=== PATIENT | female | born 1960 | race Caucasian/White ===

== ENCOUNTER → 2016-09-27 | Outpatient (CLI) | payer BC ==
--- NOTE | 2016-09-28 08:29 | MAMMOGRAPHY REPORT ---
BILATERAL DIGITAL SCREENING MAMMOGRAM TOMOSYNTHESIS WITH CAD: 09/27/2016 CLINICAL HISTORY: Routine screening examination. TECHNIQUE: Breast tomosynthesis in addition to standard 2D mammography was performed. Current study was also evaluated with a Computer Aided Detection (CAD) system. COMPARISON: Comparison is made to exams dated: 08/24/2015 mammogram, 08/22/2014 mammogram, 05/17/2013 mammogram, 05/14/2012 mammogram, 05/12/2011 mammogram, and 05/03/2010 mammogram - [facility]. BREAST COMPOSITION: There are scattered areas of fibroglandular density in both breasts. FINDINGS: The parenchymal pattern is unchanged. No developing mass, architectural distortion or clu ster of suspicious microcalcifications is seen in either breast. IMPRESSION: ACR BI-RADS CATEGORY 2: BENIGN There is no mammographic evidence of malignancy. A 1 year screening mammogram is recommended. The p atient will receive written notification of the results. Approximately 10% of breast cancers are not detected with mammography. A negative mammographic repor t should not delay biopsy if a clinically suggestive mass is present. Yuli Arvizu M.D. ay/:09/27/2016 16:50:16 Cook 3 Pastry: Carole OLEARY(Sahara)(M), [facility] letter sent: Normal 1/2 BI-RADS Code: ACR BI-RADS Category 2: Benign
== END | disposition home or self-care (01) ==
LOC: C.MAMM 15:48
PROVIDERS: ATTEND Obstetrics & Gynecology
DX: Z12.31 Encounter for screening mammogram for malignant neoplasm of breast (principal)

== ENCOUNTER → 2017-05-02 | Outpatient (CLI) | payer BC | END | disposition home or self-care (01) | LOC: C.PAPS 12:16 | PROVIDERS: ATTEND Obstetrics & Gynecology | DX: Z01.419 Encounter for gynecological examination (general) (routine) without abnormal findings (principal) ==

== ENCOUNTER → 2018-01-02 | Outpatient (CLI) | payer BC ==
--- NOTE | 2018-01-03 13:37 | MAMMOGRAPHY REPORT ---
BILATERAL DIGITAL SCREENING MAMMOGRAM TOMOSYNTHESIS WITH CAD: 01/02/2018 CLINICAL HISTORY: Routine screening. Patient has no complaints. TECHNIQUE: The study was acquired using full field digital technology and interpreted from soft copy. Breast tomosynthesis in addition to standard 2D mammography was performed. Current study was also ev aluated with a Computer Aided Detection (CAD) system. COMPARISON: Comparison is made to exams dated: 09/27/2016 mammogram, 08/24/2015 mammogram, 08/22/2014 ma mmogram, 05/17/2013 mammogram, 05/14/2012 mammogram, and 05/12/2011 mammogram - [facility]. BREAST COMPOSITION: There are scattered areas of fibroglandular density in both breasts. FINDINGS: The parenchymal pattern is unchanged. No developing mass, architectural distortion or cluster of susp icious microcalcifications is seen in either breast. IMPRESSION: ACR BI-RADS CATEGORY 2: BENIGN There is no mammographic evidence of malignancy. A 1 year screening mammogram is recommended.( 019) The patient will receive written notification of the results. Some breast cancers are not detected with mammography. A negative mammographic report should not ilya y biopsy if a clinically suggestive mass is present. Yuli Arvizu M.D. ay/:01/02/2018 15:39:21 Casing Grader: RT Hayden(Sahara)(M), [facility] letter sent: Normal 1/2 BI-RADS Code: ACR BI-RADS Category 2: Benign
== END | disposition home or self-care (01) ==
LOC: C.MAMM 15:16
PROVIDERS: ATTEND Obstetrics & Gynecology
DX: Z12.31 Encounter for screening mammogram for malignant neoplasm of breast (principal)

== ENCOUNTER 2023-07-06 06:59 | Observation (INO) ==
--- NOTE | 2023-07-06 08:28 | History & Physical Bridge Note ---
Date of Service July 06, 2023 History & Physical Bridge Note I have examined the patient, reviewed the History & Physical and in the interval since the performance of the History & Physical I have noted the following changes of clinical significance: no changes noted
--- NOTE | 2023-07-06 08:28 | Pre Anesthesia Assessment ---
Date of Service July 06, 2023 Pre Sedation Assessment Vital Signs Temp Pulse Resp BP Pulse Ox O2 Del Method 07/06/23 07:12 36.8 C 63 16 157/81 H 96 Room Air Cardiovascular RRR, no murmur, no edema + S1 normal and + S2 normal no JVD and no carotid bruit no edema Respiratory + respiratory effort normal; no respiratory distress, no labored breathing and no retractions no crackles, no rales, no rhonchi and no wheezes Pre-Sedation Airway Assessment Smoking Status: Former smoker Hx Sleep Apnea: No Short, Thick Neck: No Thyromental Distance: > or= 3.5 Finger Breadths Oral Cavity: + WNL Mallampati Class: III ASA: ASA3 NPO Status Date of Last Intake of Fluids: 07/06/23 Time of Last Intake of Fluids: 06:00 Last Oral Intake of Fluids Comment: sip with meds Date of Last Intake of Solid Food: 07/05/23 Procedure Planning Contraindications for Sedation: none Current Medications Reviewed: Yes Notes The planned sedation has been discussed with the patient. Informed Consent was obtained. I have identified the patient, determined the appropriateness of sedation and have assessed the patient immediately prior to the procedure. All medicine(s) and interventions are by my order.
--- NOTE | 2023-07-06 09:28 | Post Anesthesia Assessment ---
Date of Service July 06, 2023 Post Sedation Assessment Vital Signs Temp Pulse Resp BP Pulse Ox O2 Del Method 07/06/23 14:51 36.8 C 64 17 114/74 96 Room Air 07/06/23 14:30 36.8 C 60 18 128/74 97 Room Air 07/06/23 14:15 36.8 C 59 L 18 139/74 97 Room Air 07/06/23 14:00 36.8 C 58 L 18 146/73 H 97 Room Air 07/06/23 13:45 36.8 C 58 L 18 137/83 97 Room Air 07/06/23 13:30 36.8 C 58 L 18 133/77 97 Room Air 07/06/23 13:12 36.8 C 55 L 18 133/75 97 Room Air 07/06/23 13:00 36.8 C 57 L 18 108/80 98 Room Air 07/06/23 12:45 36.8 C 56 L 18 121/62 97 Room Air 07/06/23 12:30 36.8 C 59 L 18 108/64 98 Room Air 07/06/23 12:13 36.8 C 61 18 122/70 98 Room Air 07/06/23 12:00 36.8 C 62 18 126/68 98 Room Air 07/06/23 11:45 67 18 145/54 H 96 Room Air 07/06/23 11:30 36.7 C 67 18 129/69 96 Room Air 07/06/23 11:15 36.7 C 67 18 133/69 96 Room Air 07/06/23 11:00 36.7 C 74 18 121/76 96 Room Air 07/06/23 10:45 36.7 C 71 18 123/74 96 Room Air 07/06/23 10:35 36.7 C 48 L 18 93/51 L 96 Room Air 07/06/23 07:12 36.8 C 63 16 157/81 H 96 Room Air Recovery Score Activity: Moves 4 extremities Respiration: Deep Breath/Cough Circulation: +/-20% PreAnes Value Consciousness: Arouseable (by name) Oxygen Saturation: > 92% On Room Air Discharge Sedation Level of Care: Phase I Post Sedation Plan On clinical assessment, the patient appears to have tolerated the sedation without complications. Patient is recovering as anticipated. Patient will continue to be monitored by nursing and may be discharged when sedation discharge criteria are met per below protocol. Upon Completions of procedure up to 15 minutes continue every 5 minute vital signs and the P.A.R. score; then discharge to a Phase I or Fast Track to Phase II per the following guidelines: * Discharge Patient to appropriate Phase II area if PAR is 8 or greater or return to pre- procedure baseline. The post - procedure orders will be as directed. * If PAR score is less than 8 or not return to pre-procedure baseline then patient will follow Phase I monitoring till PAR is reached for Phase II. The Phase I may be done in procedure room or may call to secure a Phase I area. * If naloxone or flumazenil are used for reversal, hold in Phase I for continued monitoring from when last reversal dose was given for a minimum of 60 minutes or longer pending the nurse and/or physician discretion of patient condition before discharge to Phase II. Please call the Sedation Physician to re-evaluate and complete post-note for discharge to Phase II area. Do NOT discharge from procedure sedation or Phase 1 until post- sedation evaluation note is complete by procedure /sedation MD Sedation Discharge Instructions to be given to the patient at discharge to home.
--- NOTE | 2023-07-06 09:33 | Cardiac Catheterization ---
Cardiac Cath Procedure Full Procedure Date July 06, 2023 Pre-Procedure Diagnosis Pre-Procedure Diagnosis: Positive Stress Test AUC Score AUC Score: 7 Post-Procedure Diagnosis Post-Procedure Diagnosis: Severe CAD and Elevated Intracardiac Pressures Procedure(s) Performed Procedure(s) Performed: Coronary Angiography and Left Heart Cath Teacher Learning Disabled Jamie oRme DO Imcu Specialist(s) Deibler SUPERVISOR MOLD SHOP Estimated Blood Loss Estimated Blood Loss: 6cc Medication(s) Medication(s): Fentanyl, Heparin, Lidocaine 1%, Nicardipine, Nitroglycerin and Versed Summary of Findings 50-60% ostial LAD (IFR .94 per 911 emergency dispatcher) 60% mid LAD after D2, small vessel 80% mid D2, large vessel Hemodynamics Rest Ao:: 168/78/119 Final Ao: 189/78/120 LV: 192/12/20 Recommendations Recommendations: Management Recommendatons (Interventional cardiology consulted for further evaluation of LAD and diagonal) Radiation Exposure (mGy) 575 Contrast (mls) 50 Fluids (cc crystalloids) Fluids (cc crystalloids): 71 Nss Drains Drains: N/A Anesthesia Moderate sedation. Procedural Complication(s) None I attest to the content of the Intraoperative Record and any orders documented therein. Any exceptions are noted below. ACC Data: Scroll Assembler Cardiac Status Clinical evaluation leading to the procedure Abnormal resting ECG suggesting anteroseptal infarct. Patient referred for stress testing demonstrating mid and apical septal ischemia. CAD Presenation: Positive Stress Test and Stable angina (Dyspnea with exertion) Anginal Classification: CCS II Heart Failure: No Coronary Anatomy Dominant: Right Left Main (% Stenosis): Mid (20%) LAD (% Stenosis): Ostial (50%) and Mid (60%) D1 (% Stenosis): Normal D2 (% Stenosis): Proximal (30%) and Mid (80%) Circumflex (% Stenosis): Proximal (Luminal irregularities, 10%) OM1 (% Stenosis): Mid (40% stenosis involving inferior subbranch of bifurcation) RCA (% Stenosis): Proximal (30%) and Mid (30%) R PDA (% Stenosis): Normal R PL1 (% Stenosis): Normal (Small vessel) R PL2 (% Stenosis): Normal (Small vessel) Diagnostic Physicians Name: Jamie Rome DO Closure Device Recommendations: Management Recommendatons (Interventional cardiology consulted for further evaluation of LAD and diagonal) Intraprocedure Events Significant Disection: No Perforation: No
--- OUTSIDE RECORDS SUMMARY | 2023-07-06 10:04 | External Medical Summary | Summary of Care ---
Author Name Unknown Organization [facility] Address [address] [place] [address] Phone [phone] Care Team Providers Care Electrician Aircraft Name Role Phone Anisha Suazo MD Primary Care Provider [phone] Reason for Visit * Reason Comments Outpatient Testing Encounter Details Date Type Department Care Team (Late st Contact Info) Description 07/05/2023 3:50 PM EST Laboratory Laboratory, [facility] [address] [place] [address] [facility] [address] [place] [address] Abnormal stress test; Abnormal stress echocardiography; Pre-op testing Allergies No known active allergiesdocumented as of this encounter (statuses as of 07/05/2023) Medications Medication Sig Dispensed Refills Start Date End Date Status valACYclovir (VALTREX) 500 MG Tablet Take 1 Tablet by mouth in the morning. 0 03/20/2017 Active Cholecalciferol (VITAMIN D) 1000 units Tablet Take 1 Tablet by mouth in the morning. 0 05/16/2018 Active Metamucil Smooth Texture 58.6 % Oral Powder (Psyllium)Indication s:Diverticulosis of large intestine without hemorrhage One tbsp in 8 ounces of water 3/d 0 03/17/2022 Active Fluocinonide 0.05 % External SolutionIndications: Seborrheic dermatitis of scalp Apply to scalp nightly x 1 week and then as needed for itching or flaking 60 mL 2 03/22/2022 Active Ketoconazole 2 % External Shampoo (Nizoral)Indications :Seborrheic dermatitis of scalp Apply to scalp 2-3 times per week for maintenance; leave on 3-5 min before rinsing 120 mL 3 04/17/2023 Active Aspirin 81 MG Oral Tablet Delayed Release Take 1 Tablet by mouth in the morning. 100 Tablet 3 07/05/2023 Active Metoprolol Tartrate 25 MG Oral Tablet (Lopressor) Take 0.5 Tablets by mouth in the morning and 0.5 Tablets before bedtime. 30 Tablet 2 07/05/2023 Active documented as of this encounter (statuses as of 07/05/2023) Active Problems Problem Noted Date Diagnosed Date Seborrheic dermatitis of scalp 03/17/2022 Dyslipidemia, goal LDL below 160 05/07/2009 Overview: Per Lipid Taxonomy. Benign neoplasm of colon 10/21/2008 Overview: 2 polyps removed, bx from previous TV polyp nl, recommend f/u in 1 year Tubulovillous adenoma of colon 04/16/2008 Overview: 2007--large pedunculated polyp--tubulovillous adenoma with focal hig grade dysplasia--repeat 6months Female infertility of other specified origin 02/2005 Polycystic ovaries 08/05/2004 documented as of this encounter (statuses as of 07/05/2023) Resolved Problems Problem Noted Date Diagnosed Date Resolved Date ADVANCE DIRECTIVE INFORMATION 11/25/2004 03/17/2022 Overview: informed to bring in to scan documented as of this encounter (statuses as of 07/05/2023) Immunizations Name Administration Dates Next Due COVID-19 mRNA, LNP-s, No Pre serve, 2-Dose Series (Moderna) 09/29/2020,09/01/2020 COVID-19, MRNA-LNP, 23-24, P F, 50 MCG/0.5 mL, 12 YRS AND ABOVE, IM (MODERNA-Spikevax) 02/28/2023 COVID-19, mRNA, LNP-s, PF, B ooster, 100mcg/0.5mg (Moderna) 11/01/2021,04/04/2021 Covid-19, Mrna, Lnp-s, Pf, B ivalent, 50 Mcg, IM, 12 yrs and above (Moderna) 02/20/2022 Seasonal Influenza, PF, 6 M & above, IM , (FluLaval or Fluzone) 02/11/2020 TD, Preservative Free 05/16/2018 TDAP (age 11 and older)(Adacel) 03/14/2008 documented as of this encounter Social History Tobacco Use Types Packs/Day Years Used Date Smoking Tobacco: Former Cigarettes 1 26 Q uit: 05/29/2001 Smokeless Tobacco: Never Comments:quit 7 years ago Alcohol Use Standard Drinks/Week Comments Yes 0 (1 standard drink = 0.6 oz pur e alcohol) occasionaly PHQ-2 Answer Date Recorded PHQ Adult Total Score 0 04/17/2023 Sex and Gender Information Value Date Recorded Sex Assigned at Female 04/17/2023 8:24 AM EST Gender Identity Female 04/17/2023 8:24 AM EST Sexual Orientation Straight 04/17/2023 8: 24 AM EST Job Start Date Occupation Industry Not on file Not on file Not on file documented as of this encounter Plan of Treatment Upcoming Encounters Date Type Department Care Team (Latest Contact Info) Description 07/11/2023 9:00 AM EST Office Visit General Internal Medicine [facility] [place] [address] [facility] [address] [place] [address] Anisha Suazo MD [address] [facility] [place] [address] 08/21/2023 10:45 AM EDT Hospital Encounter ENDO [facility], Endoscopy Room [facility] [address] [place] [phone] Gabby Clifford DO 08/21/2023 10:45 AM EDT - 08/21/2023 11:15 AM EDT Surgery ENDO [facility], Endoscopy Room [facility] [address] [place] [address] Gabby Clifford, DO COLONOSCOPY FLEXIBLE PROXIMAL DIAGNOSTIC Pending Results Name Type Priority Associated Diagnoses Date /Time PT INR Lab Routine Abnormal stress test 07/05/2023 3:45 PM EST APTT Lab Routine Abnormal stress test 07/05/2023 3:45 PM EST CBC Lab Routine Abnormal stress test 07/05/2023 3:45 PM EST BASIC METABOLIC PANEL Lab Routine Abnormal stress echocardiography Pre-op testing 07/05/2023 4:04 PM EST Scheduled Procedures Name Priority Associated Diagnoses Date/Ti me COLONOSCOPY FLEXIBLE PROXIMAL DIAGNOSTIC Recall History of colon polyps Screen for colon cancer History of colonoscopy with polypectomy 08/21/2023 10:45 AM EDT Health Maintenance Due Date Last Done Comments HIV Screening 1975 Hepatitis C Screening 02/06/1976 Zoster Vaccines (1 of 2) 02/06/2008 COLONOSCOPY-EVERY 5 YRS AGES 18-100 03/27/2022 03/27/2017, 03/27/2017, 01/14/2013, Additional history exists Influenza Vaccine (FLU shot) (#1) 2023 02/11/2020 DXA Scan 2023 Pneumococcal Vaccine: 65+ Years (1 - PCV) 2023 Depression Screening 04/17/2024 04/17/2023 Mammogram 04/19/2024 04/19/2023, 12/29, 01/17/2022, Additional history exists Lipid Panel 03/09/2028 03/09/2023, 02/26, 03/21/2017, Additional history exists DTaP,Tdap,and Td Vaccines (3 - Td or Tdap) 05/16/2028 05/16/2018, 03/14/2008 Cervical Cancer Screening Discontinued Pap Smear Discontinued 05/11/2018, 03/29, 04/09/2015 (Done elsewhere), Additional history exists COVID-19 Vaccine Completed 02/28/2023, , 11/01/2021, Additional history exists GARDASIL-HPV IMMUNIZATION SERIES Aged Out No longer eligible based on patient's age to complete this topic HPV/Co-Test Discontinued Hepatitis B Aged Out No longer eligi ble based on patient's age to complete this topic MENINGOCOCCAL (MENACTRA/MENVEO) Aged Out No longer eligible based on patient's age to complete this topic documented as of this encounter Medical Devices Not on filedocumented as of this encounter Visit Diagnoses Diagnosis Abnormal stress test Other nonspecific abnormal cardiovascular system function study Abnormal stress echocardiography Pre-op testing Preoperative examination, unspecified History of colon polyps Personal history of colonic polyps Screen for colon cancer Special screening for malignant neoplasms, colon History of colonoscopy with polypectomy Other postprocedural status documented in this encounter Care Teams Electrician Aircraft Relationship Specialty Start Date End Date Anisha Suazo MD [address] [facility] [place] [address] PCP - General Internal Medicine 04/26/21 documented as of this encounter
--- OUTSIDE RECORDS SUMMARY | 2023-07-06 10:05 | External Medical Summary ---
Author Name Unknown Address Unknown Organization [facility] [address] [place] [address] Laboratory Report Ordering Provider Test Date Status JUAQUIN ALMAGUER 07/05/2023 15:45:17 Final Observation Date Value Abnormality Reference (Units ) Status WBC, Total 07/05/2023 15:45:17 7.13 4.00-10.8 0 (K/uL) Final RBC 07/05/2023 15:45:17 4.37 3.85-5.15 (M/uL) Final Hemoglobin 07/05/2023 15:45:17 13.6 12.0-15.3 (g/dL) Final HCT 07/05/2023 15:45:17 39.9 36.0-45.2 (%) Final MCV 07/05/2023 15:45:17 91.3 81.5-97.5 (fL) Final MCH 07/05/2023 15:45:17 31.1 27.0-34.0 (pg) Final MCHC 07/05/2023 15:45:17 34.1 32.0-36.0 (g/dL) Final RDW 07/05/2023 15:45:17 12.8 11.5-15.5 (%) Final Platelets 07/05/2023 15:45:17 297 140-400 (K /uL) Final MPV 07/05/2023 15:45:17 9.7 6.6-11.1 ( fL) Final Performing Location [facility] [address] [place] [address]
--- OUTSIDE RECORDS SUMMARY | 2023-07-06 10:05 | External Medical Summary | Summary of Care ---
Author Name Unknown Organization [facility] Address [address] [place] [address] Phone [phone] Care Team Providers Care Bank Analyst Name Role Phone Anisha Suazo MD Primary Care Provider [phone] Reason for Visit * Reason Comments Outpatient Testing Encounter Details Date Type Department Care Team (Late st Contact Info) Description 07/05/2023 3:50 PM EST Laboratory Laboratory, [facility] [address] [place] [address] [facility] [address] [place] [address] Abnormal stress test Allergies No known active allergiesdocumented as of [...] Department Care Team (Latest Contact Info) Description 07/05/2023 4:00 PM EST Imaging Radiology [address] [facility] [place] [address] Arrived 07/11/2023 9:00 AM EST Office Visit General Internal Medicine [facility] [place] [address] [place] [address] Anisha Suazo MD [address] [facility] [place] [address] 08/21/2023 10:45 AM EDT Hospital Encounter ENDO [facility], Endoscopy Room [facility] [address] [facility] [place] [phone] Gabby Clifford DO 08/21/2023 10:45 AM EDT - 08/21/2023 11:15 AM EDT Surgery ENDO [facility], Endoscopy Room [facility] [address] [place] [phone] Gabby Clifford, DO COLONOSCOPY FLEXIBLE PROXIMAL DIAGNOSTIC Pending Results Name Type Priority Associated Diagnoses Date /Time PT INR Lab Routine Abnormal stress test 07/05/2023 3:45 PM EST APTT Lab Routine Abnormal stress test 07/05/2023 3:45 PM EST CBC Lab Routine Abnormal stress test 07/05/2023 3:45 PM EST Scheduled Procedures Name Priority Associated [...] Other nonspecific abnormal cardiovascular system function study History of colon polyps Personal history of colonic polyps Screen for colon cancer Special screening for malignant neoplasms, colon History of colonoscopy with polypectomy Other postprocedural status documented in this encounter Care Teams Bank Analyst Relationship Specialty Start Date End Date Anisha Suazo MD [address] [facility] [place] [address] PCP - General Internal Medicine 04/26/21 documented as of this encounter
--- OUTSIDE RECORDS SUMMARY | 2023-07-06 10:05 | External Medical Summary | Summary of Care ---
Author Name Unknown Organization [facility] Address [address] [place] [address] Phone [phone] Care Team Providers Care Nib Assembler Name Role Phone Anisha Suazo MD Primary Care Provider [phone] Reason for Visit * Reason Onset Date Comments Procedure 07/05/2023 Encounter Details Date Type Department Care Team (Late st Contact Info) Description 07/05/2023 Telephone Cardiology, [facility] [address] [facility] [place] [address] Robert Moseley, [address] [facility] [place] [address] Procedure Allergies No known active allergiesdocumented as of [...] on file documented as of this encounter Miscellaneous Notes * Addendum Note - Randall Jimenez RN - 07/05/2023 3:40 PM ESTAddended by: RANDALL JIMENEZ on: 07/05/2023 03:40 PM Modules accepted: Orders * Telephone Encounter - Randall Jimenez RN - 07/05/2023 3:33 PM EST Patient schedule d for cardiac cath at [facility] tomorrow 07/06/[address] Moseley. Patient to be there at 0700 am And procedure at 0800. Pre-op teaching done. Patient to report to main entrance. No caffeine for 24 hours. NPO after 1000 pm. Only meds she needs morning of is her Metoprolol and 4 baby ASA.She will need a tanker truck driver to take her home. Dr. Rome will be notified by Dr. Moseley. documented in this encounter Plan of Treatment Upcoming Encounters Date Type Department Care Team (Latest Contact Info) Description 07/05/2023 3:50 PM EST Laboratory Laboratory, [facility] [address] [facility] [place] [id number] [facility] [address] [place] [address] Arrived 07/11/2023 9:00 AM EST Office Visit General Internal Medicine [facility] [address] [place] [address] Anisha Suazo MD [address] [place] [address] 08/21/2023 10:45 AM EDT Hospital Encounter ENDO [facility], Endoscopy Room [facility] [address] [facility] [place] [phone] Gabby Clifford, 08/21/2023 10:45 AM EDT - 08/21/2023 11:15 AM EDT Surgery ENDO [facility], Endoscopy Room [facility] [address] [facility] [place] [phone] Gabby Clifford, COLONOSCOPY FLEXIBLE PROXIMAL DIAGNOSTIC Scheduled Procedures Name Priority Associated Diagnoses Date/Ti [...] this encounter Visit Diagnoses Diagnosis Abnormal stress test- Primary Other nonspecific abnormal cardiovascular system function study History of colon polyps Personal history of colonic polyps Screen for colon cancer Special screening for malignant neoplasms, colon History of colonoscopy with polypectomy Other postprocedural status documented in this encounter Care Teams Nib Assembler Relationship Specialty Start Date End Date Anisha Suazo MD [address] [place] [address] PCP - General Internal Medicine 04/26/21 documented as of this encounter
--- OUTSIDE RECORDS SUMMARY | 2023-07-06 10:05 | External Medical Summary | Summary of Care ---
Author Name Unknown Organization [facility] Address [address] [place] [address] Phone [phone] Care Team Providers Care Vending Supervisor Name Role Phone Anisha Suazo MD Primary Care Provider [phone] Reason for Visit * Reason Comments Follow Up Encounter Details Date Type Department Care Team (Late st Contact Info) Description 07/05/2023 2:30 PM EST Office Visit Cardiology, [facility] [address] [place] [address] Robert Moseley, [address] [place] [address] Abnormal stress echocardiography*; Pre-op testing Allergies No known active allergiesdocumented [...] on file documented as of this encounter Last Filed Vital Signs Vital Sign Reading Time Taken Comments Blood Pressure 156/90 07/05/2023 2:37 PM EST Pulse 76 07/05/2023 2:37 PM EST Temperature - - Respiratory Rate 16 07/05/2023 2:37 PM EST Oxygen Saturation - - Inhaled Oxygen Concentration - - Weight 62.1 kg (137 lb) 07/05/2023 2:37 PM EST Height - - Body Mass Index 24.46 04/17/2023 8:22 AM EST documented in this encounter Progress Notes * Robert Moseley, - 07/05/2023 3:06 PM EST Cardiology Outpatient Consultation Kolton Cornell is a 63 year old female referred by Anisha Suazo MD who is seen in consultation for an abnormal stress test. 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 Recently, she has been noted to have some hypertension. 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 The patient underwent an exercise stress echocardiogram today. The study was markedly abnormal with EKG changes as well as wall motion abnormalities in the anterior myocardium. The patientwas able to do 7 minutes of a Hardik protocol. She did not have any chest pain or other symptoms. Itshould be noted, the patient does have a routine exercise program including swimming laps 3 days a w [place] as well as having a walking program. During the above she has not had any chest pain or progressive shortness of breath. She denies dizziness or lightheadedness. No orthopnea. She has minimal risk factors for heart disease. No prior history of diabetes or hypercholesterolemia. Her father had heart disease starting in his 40s but he was a smoker. The patient has a remote history of smoking butstopped over 20 years ago. Past Medical History: Diagnosis Date Benign neoplasm of colon 04/16/08 large pedunculated polyp--tubulovillous adenoma with focal hig grade dysplasia--repeat 6months Benign neoplasm of colon 10/21/08 2 polyps removed, bx from previous TV polyp nl, recommend f/u in 1 year Benign neoplasm of colon 11/19/09 bx,repeat in 3 yrs,biopsies did not show any evidence of recurrent polyp Female infertility of other specified origin Polycystic ovaries Patient Active Problem List Diagnosis Code Female infertility of other specified origin N97.8 Polycystic ovaries E28.2 Tubulovillous adenoma of colon D12.6 Benign neoplasm of colon D12.6 Dyslipidemia, goal LDL below 160 E78.5 Seborrheic dermatitis of scalp L21.9 Past Surgical History: Procedure Laterality Date COLONOSCOPY W/ BIOPSY (RECTUM) 10/21/08 2 polyps removed, bx from previous TV polyp nl, recommend f/u in 1 year COLONOSCOPY W/ BIOPSY (RECTUM) 11/19/09 bx,repeat in 3 yrs,biopsies did not show any evidence of recurrent polyp COLONOSCOPY W/ LESION REMOVAL, SNARE 04/16/08 large pedunculated polyp--tubulovillous adenoma with focal hig grade dysplasia--repeat 6 months COLONOSCOPY, DIAGNOSTIC (RECTUM) 01/14/2013 COLONOSCOPY FLEXIBLE PROXIMAL DIAGNOSTIC performed by Pee Adame MD at ENDOSCOPY [facility] COLONOSCOPY, DIAGNOSTIC (RECTUM) 03/27/2017 normal, repeat 5 yrs/COLONOSCOPY FLEXIBLE PROXIMAL DIAGNOSTIC performed by Gabby Clifford DO at ENDOSCOPY [facility] OTHER laproscopy Family History Problem Relation Age of Onset Heart Disorder Mother --TCAVR age 87 Arthritis Mother Stroke Mother Gastro-intestinal disorder Father colon polyps age 60 Heart attack Father 47 Heart Disorder Sister ?valve replacement Heart Disorder Sister valve problem Heart Disorder Brother -SP AVR age 60 Breast Cancer Grandmother (Maternal) Breast Cancer Grandmother (Paternal) mastectomy Social History Tobacco Use Smoking status: Former Packs/day: 1.00 Years: 26.00 Additional pack years: 0.00 Total pack years: 26.00 Types: Cigarettes Quit date: 05/29/2001 Years since quittin.1 Smokeless tobacco: Never Tobacco comments: quit 7 years ago Substance Use Topics Alcohol use: Yes Comment: occasionaly Drug use: No Review of patient's allergies indicates: No Known Allergies Current Outpatient Medications Medication Sig Dispense Refill valACYclovir (VALTREX) 500 MG Tablet Take 1 Tablet by mouth in the morning. Cholecalciferol (VITAMIN D) 1000 units Tablet Take 1 Tablet by mouth in the morning. Metamucil Smooth Texture 58.6 % Oral Powder (Psyllium) One tbsp in 8 ounces of water 3/d Fluocinonide 0.05 % External Solution Apply to scalp nightly x 1 week and then as needed for itching or flaking 60 mL 2 Ketoconazole 2 % External Shampoo (Nizoral) Apply to scalp 2-3 times per week for maintenance; leave on 3-5 min before rinsing 120 mL 3 Aspirin 81 MG Oral Tablet Delayed Release Take 1 Tablet by mouth in the morning. 100 Tablet 3 Metoprolol Tartrate 25 MG Oral Tablet (Lopressor) Take 0.5 Tablets by mouth in the morning and 0.5 Tablets before bedtime. 30 Tablet 2 No current facility-administered medications for this visit. ROS: Review of Systems: See HPI for pertinent positives. All other review of systems is negative. PHYSICAL EXAMINATION BP 156/90 | Pulse 76 | Resp 16 | Wt 62.1 kg (137 lb) | LMP 12/28/2013 | BMI 24.46 kg/m | BSA 1.66m Body mass index is 24.46 kg/m. General: no acute distress and stated age Head: normocephalic, no masses, lesions, tenderness or abnormalities Eyes: conjunctiva are pink and non-injected, sclera clear Neck: supple, no adenopathy, no bruits, normal jugular venous pulse, no hepatojugular reflux Chest: normal shape and normal respiratory effort Lungs: clear to auscultation and percussion Cardiac Exam: - regular rate & rhythm, no murmurs gallops or rubs - normal S1, normal S2 Pulses: 2(+) throughout Abdomen: abdomen soft, non-tender, no abnormal masses and no hepatosplenomegaly Musculoskeletal: no gait disturbance, no joint inflammation, no deforming arthritis Extremities: no edema and no cyanosis Neuro: grossly normal exam Laboratory Data Review: Results for orders placed or performed in visit on 04/17/09 LIPID PANEL Result Value Ref Range HOURS FASTING 12 hours Triglycerides 128 55 - 240 mg/dL Cholesterol 224 (H) <200 mg/dL HDL Cholesterol 67 (H) 40 - 59 mg/dL Cholesterol-HDL Ratio 3.3 LDL Cholesterol 131 (H) 0 - 100 mg/dL Results for orders placed or performed in visit on 03/21/17 LIPID PANEL WITH DIRECT LDL IF TG ABOVE 400 MG/DL Result Value Ref Range HOURS FASTING 12 hours Triglycerides 61 <200 mg/dL Cholesterol 200 (H) <200 mg/dL HDL Cholesterol 61 >39 mg/dL Cholesterol-HDL Ratio 3.3 LDL Cholesterol 127 0 - 129 mg/dL LDL Cholesterol (Direct Measure) NOT APPLICABLE 0 - 129 mg/dL Lab Results Component Value Date/Time HDL CHOLESTEROL - [facility] 61 03/21/2017 07:24 AM HDL-OUTSIDE LAB 63 03/09/2023 12:00 AM Lab Results Component Value Date/Time CHOL/HDL RATIO-OUTSIDE LAB 3.8 03/09/2023 12:00 AM CHOLESTEROL - [facility] 200 (H) 03/21/2017 07:24 AM CHOLESTEROL-HDL RATIO - [facility] 3.3 03/21/2017 07:24 AM CHOLESTEROL-OUTSIDE LAB 240 (H) 03/09/2023 12:00 AM Lab Results Component Value Date/Time GLUCOSE - [facility] 90 03/21/2017 07:24 AM GLUCOSE, URINE - [facility] NEGATIVE 11/25/2004 11:06 AM GLUCOSE-OUTSIDE LAB 89 03/09/2023 12:00 AM Lab Results Component Value Date/Time HEMOGLOBIN A1C - [facility] 5.6 04/17/2009 11:17 AM HEMOGLOBIN, [id number] LAB 5.6 03/09/2023 12:00 AM HEMOGLOBIN-OUTSIDE LAB 13.4 03/09/2023 12:00 AM No components found for: "[id number]" No results found for: "MICROALBU" Lab Results Component Value Date/Time CREATININE - [facility] 0.7 01/07/2014 08:42 AM CREATININE-OUTSIDE LAB 0.52 03/09/2023 12:00 AM Lab Results Component Value Date/Time ALT - [facility] 14 01/07/2014 08:42 AM Impression: This is a 63-year-old female who is quite active with swimming and a routine walking program and has not had any history of chest pain or shortness of breath however, the patient has an 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 Plan: I explained the results of the stress test to the patient today. I have recommended and in a shareddecision-making process the patient is willing to undergo a cardiac catheterization. I have explained the risk, benefit and intent of the procedure to the patient, including the potential for catheter based interventions such as balloon angioplasty or intracoronary stent. She has had a recent history of hypertension and is hypertensive in the office today and therefore I started her on pqgwoptudh89.5 mg twice daily starting today. She will also start today 81 mg of aspirin daily. Plan follow-up after the above procedure. This chart was completed in part utilizing [employer] Speech Voice Recognition Software. Grammatical errors, random word insertions, prounoun errors, and incomplete sentences are an occasional consequence of this system due to software limitations, ambient noise, and hardware issues. Any formal questions or concerns about the content, text, or information contained within the body of this dictation should be directly addressed to the provider for clarification. I spent a total of 40-54 minutes (exact time 45 mins) on the date of service in preparation, delivery, and documentation of the care provided to Saskia Cornell excluding any time spent in the performance of separately billed services. Robert Moseley, DO Cardiology, [address] [place] [address] 07/05/2023 documented in this encounter Nursing Notes * Randall Estrada RN - 07/05/2023 2:36 PM EST Examination Room: room 16 Name: Saskia Cornell Date of : (1960). Reason for Visit: for follow up Interim Hospitalization(s): denies Problems/Concerns: denies Chest Pain/SOB: denies [facility] Discussed: Not applicable [facility] is a way you can talk to your provider online through e-mail. Would you like to sign up? I can activate it for you? ALREADY ACTIVE Patient was instructed to not get up on the exam table until directed and assisted by their provider; patient is to remain seated in the chair/ wheelchair/ exam table for fall prevention and safety reasons. Patient is aware to have assistance to step down off exam table with personnel. Patient voiced full comprehension of instructions. documented in this encounter Miscellaneous Notes * Addendum Note - Lawson Gomez LPN - 07/05/2023 3:51 PM ESTAddended by: LAWSON GOMEZ on: 07/05/2023 03:51 PM Modules accepted: Orders documented in this encounter Plan of Treatment Upcoming Encounters Date Type Department Care Team (Latest Contact Info) Description 07/05/2023 4:00 PM EST Imaging Radiology [place] [facility] [place] [address] [facility] [place] [address] Arrived 07/11/2023 9:00 AM EST Office Visit General Internal Medicine [facility] [employer] [address] [place] [address] Anisha Suazo MD 200 [facility] [place] [address] 08/21/2023 10:45 AM EDT Hospital Encounter ENDO [facility], Endoscopy Room [facility] [address] [place] [phone] Gabby Clifford DO 08/21/2023 10:45 AM EDT - 08/21/2023 11:15 AM EDT Surgery ENDO [facility], Endoscopy Room [facility] [address] [place] [phone] Gabby Clifford, COLONOSCOPY FLEX[facility] PROXIMAL DIAGNOSTIC Scheduled Orders Name Type Priority Associated Diagnoses Orde r Schedule BASIC METABOLIC PANEL Lab Routine Abnormal stress echocardiography Pre-op testing Expected: 07/05/2023, Expires: 07/05/2024 Scheduled Procedures Name Priority Associated Diagnoses Date/Ti [...] this encounter Visit Diagnoses Diagnosis Abnormal stress echocardiography- Primary Pre-op testing Preoperative examination, unspecified History of colon polyps Personal history of colonic polyps Screen for colon cancer Special screening for malignant neoplasms, colon History of colonoscopy with polypectomy Other postprocedural status documented in this encounter Care Teams Vending Supervisor Relationship Specialty Start Date End Date Anisha Suazo MD [address] [facility] [place] [address] PCP - General Internal Medicine 04/26/21 documented as of this encounter
--- OUTSIDE RECORDS SUMMARY | 2023-07-06 10:05 | External Medical Summary | Summary of Care ---
Author Name Unknown Organization [facility] Address [address] [place] [address] Phone [phone] Care Team Providers Care It Systems Analyst Consultant Name Role Phone Anisha Suazo MD Primary Care Provider [phone] Reason for Visit * Reason Onset Date Comments Procedure 07/05/2023 Encounter Details Date Type Department Care Team (Late st Contact Info) Description 07/05/2023 Telephone Cardiology, [facility] [address] [facility] [place] [address] Robert Moseley, [address] [facility] [place] [address] Procedure Allergies No known active allergiesdocumented as [...] Note - Randall Jimenez RN - 07/05/2023 3:41 PM ESTAddended by: RANDALL JIMENEZ on: 07/05/2023 03:41 PM Modules accepted: Orders * Addendum Note - Randall Jimenez RN - 07/05/2023 3:40 PM ESTAddended by: RANDALL JIMENEZ on: 07/05/2023 03:40 PM Modules accepted: Orders * Telephone Encounter - Randall Jimenez RN - 07/05/2023 3:33 PM EST Patient schedule d for cardiac cath at [facility] tomorrow 07/06/[address] Moseley. Patient to be there at 0700 am And procedure at 0800. Pre-op teaching done. Patient to report to main entrance. No caffeine for 24 hours. NPO after 1000 pm. Only meds she needs morning of is her Metoprolol and 4 baby ASA.She will need a driver trainee to take her home. Dr. Rome will be notified by Dr. Moseley. documented in this encounter Plan of Treatment Upcoming Encounters Date Type Department Care Team (Latest Contact Info) Description 07/05/2023 3:50 PM EST Laboratory Laboratory, [facility] 132 [facility] [place] [phone] [facility] [address] [facility] [place] [address] Arrived 07/11/2023 9:00 AM EST Office Visit General Internal Medicine [facility] [address] [place] [address] Anisha Suazo MD [address] [place] [address] 08/21/2023 10:45 AM EDT [facility] Room [facility] [address] [place] [address] Gabby Clifford DO 08/21/2023 10:45 AM EDT - 08/21/2023 11:15 AM EDT Surgery ENDO [facility], Endoscopy Room [facility] [address] [place] [phone] Gabby Clifford DO COLONOSCOPY FLEX[facility] PROXIMAL DIAGNOSTIC Scheduled Orders Name Type Priority Associated Diagnoses Orde r Schedule PT INR Lab Routine Abnormal stress test Expected: 07/05/2023 (Approximate), Expires: 07/05/2024 APTT Lab Routine Abnormal stress test Expected: 07/05/2023, Expires: 07/05/2024 XR CHEST 2 VIEWS Medical Imaging Routine Abnormal stress test Ordered: 07/05/2023 CBC Lab Routine Abnormal stress test Expected: 07/05/2023 (Approximate), Expires: 07/05/2024 Scheduled Procedures Name Priority Associated [...] status documented in this encounter Care Teams It Systems Analyst Consultant Relationship Specialty Start Date End Date Anisha Suazo MD 200 [facility], [place] [id number] PCP - General Internal Medicine 04/26/21 documented as of this encounter
--- OUTSIDE RECORDS SUMMARY | 2023-07-06 10:05 | External Medical Summary ---
Author Name Unknown Address Unknown Organization [facility] [address] [place] [address] Laboratory Report Ordering Provider Test Date Status JUAQUIN ALMAGUER 07/05/2023 15:45:17 Final Anticoagulation may affect t esting. Refer to [facility] Test Catalog for a list of effects. Observation Date Value Abnormality Reference (Units ) Status aPTT panel - Platelet poor plasma 07/05/2023 15:45:17 26 21-38 (seconds) Final Performing Location LABORATORY [facility] [place] [address] [place] [address]
--- OUTSIDE RECORDS SUMMARY | 2023-07-06 10:05 | External Medical Summary | Summary of Care ---
Author Name Unknown Organization [facility] Address [address] [place] [address] Phone [phone] Care Team Providers Care Metal Stamping Machine Operator Name Role Phone Anisha Suazo MD Primary Care Provider [phone] Reason for Visit * Reason Comments Outpatient Testing Encounter Details Date Type Department Care Team (Late st Contact Info) Description 07/05/2023 3:50 PM EST Laboratory Laboratory, [facility] [address] [place] [address] [facility] [address] [place] [address] Abnormal stress test Allergies No known active [...] Office Visit General Internal Medicine [place] [place] [place] [address] [place] [address] Anisha Suazo MD 200 [facility] [place] [address] 08/21/2023 10:45 AM EDT Hospital Encounter ENDO [facility], Endoscopy Room [facility] [address] [place] [phone] Gabby Clifford DO 08/21/2023 10:45 AM EDT - 08/21/2023 11:15 AM EDT Surgery ENDO [facility], Endoscopy Room [facility] [address] [place] [phone] Suvock, Gabby T, DO COLONOSCOPY FLEXIBLE PROXIMAL DIAGNOSTIC Pending Results [...] status documented in this encounter Care Teams Metal Stamping Machine Operator Relationship Specialty Start Date End Date Anisha Suazo MD 200 [place] [address] PCP - General Internal Medicine 04/26/21 documented as of this encounter
--- OUTSIDE RECORDS SUMMARY | 2023-07-06 10:05 | External Medical Summary | Summary of Care ---
Author Name Unknown Organization [facility] Address [address] [place] [address] Phone [phone] Care Team Providers Care Tire Retreader Name Role Phone Anisha Suazo MD Primary Care Provider [phone] Reason for Visit * Reason Comments Follow Up Encounter Details Date Type Department Care Team (Late st Contact Info) Description 07/05/2023 2:30 PM EST Office Visit Cardiology, [facility] [address] [place] [address] Robert Moseley, [address] [place] [address] Abnormal stress echocardiography* Allergies No known active allergiesdocumented as of [...] stress test. 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 [...] performed by Pee Adame MD at ENDOSCOPY [facility] COLONOSCOPY, DIAGNOSTIC (RECTUM) 03/27/2017 normal, repeat 5 yrs/COLONOSCOPY FLEXIBLE PROXIMAL DIAGNOSTIC performed by Gabby Clifford DO at ENDOSCOPY [facility] OTHER laproscopy Family History Problem Relation Age [...] - [facility] 5.6 04/17/2009 11:17 AM HEMOGLOBIN, [id number] LAB 5.6 03/09/2023 12:00 AM HEMOGLOBIN-OUTSIDE LAB 13.4 03/09/2023 12:00 AM No components found for: "[id number]" No results found for: "MICROALBU" Lab Results [...] today and therefore I started her on uvcriwosdq43.5 mg twice daily starting today. She will also start today 81 mg of aspirin daily. Plan follow-up after the above procedure. This chart was completed in part utilizing [employer] Speech Voice Recognition Software. Grammatical errors, random [...] separately billed services. Robert Moseley, DO Cardiology, [address] [address] 07/05/2023 documented in this encounter Nursing Notes [...] comprehension of instructions. documented in this encounter Plan of Treatment Upcoming Encounters Date Type Department Care Team (Latest Contact Info) Description 07/11/2023 9:00 AM EST Office Visit General Internal Medicine [facility] 200 [facility] [place] [address] Anisha Suazo MD 200 [facility] [address] 08/21/2023 10:45 AM EDT Hospital Encounter ENDO [facility], Endoscopy Room [facility] [address] [place] [phone] Gabby Clifford DO 08/21/2023 10:45 AM EDT - 08/21/2023 11:15 AM EDT Surgery ENDO [facility], Endoscopy Room [facility] [address] [place] [phone] Gabby Clifford DO COLONOSCOPY FLEXIBLE PROXIMAL DIAGNOSTIC Scheduled Procedures Name [...] Visit Diagnoses Diagnosis Abnormal stress echocardiography- Primary History of colon polyps Personal history of colonic polyps Screen for colon cancer Special screening for malignant neoplasms, colon History of colonoscopy with polypectomy Other postprocedural status documented in this encounter Care Teams Tire Retreader Relationship Specialty Start Date End Date Anisha Suazo MD [address] [place] [address] PCP - General Internal Medicine 11/29/21 documented as of this encounter
--- OUTSIDE RECORDS SUMMARY | 2023-07-06 10:05 | External Medical Summary ---
Author Name Unknown Address Unknown Organization [facility] [address] [place] [address] Laboratory Report Ordering Provider Test Date Status JUAQUIN ALMAGUER 07/05/2023 15:45:17 Final Warfarin Therapy
INR: 2 .0-3.0 conventional anticoagulation
INR: 2.5- 3.5 high intensity anticoagulation Observation Date Value Abnormality Reference (Units ) Status PT 07/05/2023 15:45:17 12.8 11.6-15.2 (seconds) Final INR 07/05/2023 15:45:17 1.0 0.8-1.2 Final Performing Location [facility] [place] [address]
--- OUTSIDE RECORDS SUMMARY | 2023-07-06 10:05 | External Medical Summary | Summary of Care ---
Author Name Unknown Organization [facility] Address [address] [place] [address] Phone [phone] Care Team Providers Care Residential Sales Rep Name Role Phone Anisha Suazo MD Primary Care Provider [phone] Reason for Visit * Reason Comments Follow Up Encounter Details Date Type Department Care Team (Late st Contact Info) Description 07/05/2023 2:30 PM EST Office Visit Cardiology, [facility] [address] [place] [address] Robert Moseley, [address] [place] [address] Abnormal stress echocardiography* Allergies No known active [...] stress test. 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 [...] performed by Pee Adame MD at ENDOSCOPY [facility] COLONOSCOPY, DIAGNOSTIC (RECTUM) 03/27/2017 normal, repeat 5 yrs/COLONOSCOPY FLEXIBLE PROXIMAL DIAGNOSTIC performed by Gabby Clifford DO at ENDOSCOPY [facility] OTHER laproscopy Family History Problem Relation [...] - [facility] 5.6 04/17/2009 11:17 AM HEMOGLOBIN, [id number]-JPKALIP LAB 5.6 03/09/2023 12:00 AM HEMOGLOBIN-OUTSIDE LAB 13.4 03/09/2023 12:00 AM No components found for: "[id number]" No results found for: "MICROALBU" Lab Results [...] today and therefore I started her on lcvjnwghaj39.5 mg twice daily starting today. She will also start today 81 mg of aspirin daily. Plan follow-up after the above procedure. This chart was completed in part utilizing Aqu[employer] Speech Voice Recognition Software. Grammatical errors, random [...] separately billed services. Robert Moseley, DO Cardiology, [address] [address] 07/05/2023 documented in this encounter Nursing Notes [...] Description 07/05/2023 3:50 PM EST Laboratory Laboratory, [facility] [address] [place] [phone] [facility] [address] [facility] [place] [address] Arrived 07/11/2023 9:00 AM EST Office Visit General Internal Medicine [facility] [place] [address] [place] [address] Anisha Suazo MD [address] [place] [address] 08/21/2023 10:45 AM EDT Hospital Encounter ENDO [facility], Endoscopy Room [facility] [address] [place] [phone] Gabby Clifford DO 08/21/2023 10:45 AM EDT - 08/21/2023 11:15 AM EDT Surgery ENDO [facility], Endoscopy Room [facility] [address] [place] [phone] Gabby Clifford, DO COLONOSCOPY FLEXIBLE PROXIMAL DIAGNOSTIC Scheduled Procedures [...] status documented in this encounter Care Teams Residential Sales Rep Relationship Specialty Start Date End Date Anisha Suazo MD 200 [facility] [place] [address] PCP - General Internal Medicine 04/26/21 documented as of this encounter
--- OUTSIDE RECORDS SUMMARY | 2023-07-06 10:05 | External Medical Summary | Summary of Care ---
Author Name Unknown Organization [facility] Address [address] [place] [address] Phone [phone] Care Team Providers Care Kit Assembler Name Role Phone Anisha Suazo MD Primary Care Provider [phone] Reason for Visit * Reason Comments Follow Up Encounter Details Date Type Department Care Team (Late st Contact Info) Description 07/05/2023 2:30 PM EST Office Visit Cardiology, [facility] [address] [place] [address] Robert Moseley, [address] [place] [address] Abnormal stress echocardiography* Allergies No known active [...] stress test. 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 [...] performed by Pee Adame MD at ENDOSCOPY [facility] COLONOSCOPY, DIAGNOSTIC (RECTUM) 03/27/2017 normal, repeat 5 yrs/COLONOSCOPY FLEXIBLE PROXIMAL DIAGNOSTIC performed by Gabby Clifford DO at ENDOSCOPY [facility] OTHER laproscopy Family History Problem Relation Age [...] - [facility] 5.6 04/17/2009 11:17 AM HEMOGLOBIN, [id number]-CNCHISN LAB 5.6 03/09/2023 12:00 AM HEMOGLOBIN-OUTSIDE LAB 13.4 03/09/2023 12:00 AM No components found for: "[id number]" No results found for: "MICROALBU" Lab Results [...] today and therefore I started her on knozajikzh21.5 mg twice daily starting today. She will also start today 81 mg of aspirin daily. Plan follow-up after the above procedure. This chart was completed in part utilizing [employer] Speech Voice Recognition Software. Grammatical errors, random [...] separately billed services. Robert Moseley, DO Cardiology, [address] [address] 07/05/2023 documented in this encounter Nursing Notes [...] AM EST Office Visit General Internal Medicine [facility] 200 [facility] [place] [address] Anisha Suazo MD 200 [facility] [address] 08/21/2023 10:45 AM EDT Hospital Encounter ENDO [facility], Endoscopy Room [facility] [address] [place] [phone] Gabby Clifford DO 08/21/2023 10:45 AM EDT - 08/21/2023 11:15 AM EDT Surgery ENDO [facility], Endoscopy Room [facility] [address] [place] [phone] Gabby Clifford DO COLONOSCOPY FLEXIBLE PROXIMAL DIAGNOSTIC [...] status documented in this encounter Care Teams Kit Assembler Relationship Specialty Start Date End Date Anisha Suazo MD [address] [place] [address] PCP - General Internal Medicine 11/29/21 documented as of this encounter
--- OUTSIDE RECORDS SUMMARY | 2023-07-06 10:05 | External Medical Summary | Summary of Care ---
Author Name Unknown Organization [facility] Address [address] [place] [address] Phone [phone] Care Team Providers Care Office Employee Name Role Phone Anisha Suazo MD Primary Care Provider [phone] Reason for Visit * Reason Comments Follow Up Encounter Details Date Type Department Care Team (Late st Contact Info) Description 07/05/2023 2:30 PM EST Office Visit Cardiology, [facility] [address] [place] [address] Robert Moseley, [address] [place] [address] Abnormal stress echocardiography* Allergies No known active [...] stress test. 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 [...] performed by Pee Adame MD at ENDOSCOPY [facility] COLONOSCOPY, DIAGNOSTIC (RECTUM) 03/27/2017 normal, repeat 5 yrs/COLONOSCOPY FLEXIBLE PROXIMAL DIAGNOSTIC performed by Gabby Clifford DO at ENDOSCOPY [facility] OTHER laproscopy Family History Problem Relation [...] - [facility] 5.6 04/17/2009 11:17 AM HEMOGLOBIN, [id number] LAB 5.6 03/09/2023 12:00 AM HEMOGLOBIN-OUTSIDE LAB 13.4 03/09/2023 12:00 AM No components found for: "[id number]" No results found for: "MICROALBU" Lab Results [...] today and therefore I started her on .5 mg twice daily starting today. She will also start today 81 mg of aspirin daily. Plan follow-up after the above procedure. This chart was completed in part utilizing Jag[employer] Speech Voice Recognition Software. Grammatical errors, random [...] separately billed services. Robert Moseley, DO Cardiology, [address] [address] 07/05/2023 documented in this encounter Nursing Notes [...] AM EST Office Visit General Internal Medicine [facility] 200 [facility] [place] [address] Anisha Suazo MD [facility] [address] 08/21/2023 10:45 AM EDT Hospital Encounter ENDO [facility], Endoscopy Room [facility] [address] [place] [phone] Gabby Clifford DO 08/21/2023 10:45 AM EDT - 08/21/2023 11:15 AM EDT Surgery ENDO [facility], Endoscopy Room [facility] [address] [place] [phone] Gabby Clifford DO COLONOSCOPY FLEXIBLE PROXIMAL DIAGNOSTIC [...] status documented in this encounter Care Teams Office Employee Relationship Specialty Start Date End Date Anisha Suazo MD [address] [place] [address] PCP - General Internal Medicine 11/29/21 documented as of this encounter
--- OUTSIDE RECORDS SUMMARY | 2023-07-06 10:05 | External Medical Summary | Summary of Care ---
Author Name Unknown Organization [facility] Address [address] [place] [address] Phone [phone] Care Team Providers Care Coal Weigher Name Role Phone Anisha Suazo MD Primary Care Provider [phone] Reason for Visit * Reason Onset Date Comments Procedure 07/05/2023 Encounter Details Date Type Department Care Team (Late st Contact Info) Description 07/05/2023 Telephone Cardiology, [facility] [address] [facility] [place] [address] Robert Moseley, [address] [facility] [place] [address] Procedure Allergies No known active allergiesdocumented as [...] Patient schedule d for cardiac cath at [facility] tomorrow 07/06/[address] Moseley. Patient to be there at 0700 am And procedure at 0800. Pre-op teaching done. Patient to report to main entrance. No caffeine for 24 hours. NPO after 1000 pm. Only meds she needs morning of is her Metoprolol and 4 baby ASA.She will need a semi truck driver to take her home. Dr. Rome will be notified by Dr. Moseley. documented in this encounter Plan of Treatment Upcoming Encounters Date Type Department Care Team (Latest Contact Info) Description 07/05/2023 4:00 PM EST Imaging Radiology [address] [place] [address] Arrived 07/11/2023 9:00 AM EST Office Visit General Internal Medicine [facility] [address] [place] [address] Anisha Suazo MD [address] [place] [address] 08/21/2023 10:45 AM EDT Hospital Encounter ENDO [facility], Endoscopy Room [facility] [address] [place] [phone] Gabby Clifford DO 08/21/2023 10:45 AM EDT - 08/21/2023 11:15 AM EDT Surgery ENDO [facility], Endoscopy Room [facility] [address] [place] [phone] Gabby Clifford DO COLONOSCOPY FLEXIBLE PROXIMAL DIAGNOSTIC Pending Results Name Type Priority Associated Diagnoses Date /Time PT INR Lab Routine Abnormal stress test 07/05/2023 3:45 PM EST APTT Lab Routine Abnormal stress test 07/05/2023 3:45 PM EST XR CHEST 2 VIEWS Medical Imaging Routine Abnormal stress test 07/05/2023 3:46 PM EST CBC Lab Routine Abnormal stress test 07/05/2023 3:45 PM EST Scheduled Orders Name Type Priority Associated Diagnoses Orde r Schedule PT INR Lab Routine Abnormal stress test Expected: 07/05/2023 (Approximate), Expires: 07/05/2024 APTT Lab Routine Abnormal stress test Expected: 07/05/2023, Expires: CBC Lab Routine Abnormal stress test Expected: [...] status documented in this encounter Care Teams Coal Weigher Relationship Specialty Start Date End Date Anisha Suazo MD 200 [facility] [place], [place] [address] PCP - General Internal Medicine 04/26/21 documented as of this encounter
--- OUTSIDE RECORDS SUMMARY | 2023-07-06 10:05 | External Medical Summary ---
Author Name Unknown Address Unknown Organization K01:[facility]ORY [facility] - [address] [facility] [address] Laboratory Report Ordering Provider Test Date Status JUAQUIN ALMAGUER 07/05/2023 16:04:35 Final Observation Date Value Abnormality Reference (Units ) Status BUN 07/05/2023 16:04:35 13 6-20 (mg/dL) Final Creatinine 07/05/2023 16:04:35 0.7 0.5-1.0 (mg/dL) Final Glomerular filtration rate/1.73 sq M.predicted [Volume Rate/Area] in Serum, Plasma or Blood by Creatinine-based formula (CKD-EPI) 07/05/2023 16:04:35 >90 >=60 (mL/min) Final eGFR is calculated based on the CKD-EPI 2020 equation SODIUM 07/05/2023 16:04:35 139 135-146 (m mol/L) Final Potassium 07/05/2023 16:04:35 4.1 3.5-5.1 (m mol/L) Final Cl 07/05/2023 16:04:35 101 98-107 (mm ol/L) Final CO2 07/05/2023 16:04:35 25 22-32 (mmo l/L) Final Anion gap 07/05/2023 16:04:35 13 7-15 (mmol /L) Final Glucose 07/05/2023 16:04:35 98 70-120 (mg /dL) Final Calcium 07/05/2023 16:04:35 9.6 8.4-10.2 ( mg/dL) Final Performing Location [facility] - [address] [place] [address]
[2023-07-06] MEDS: HEPARIN (PORCINE) 1000 UNIT/ML 10 ML (CATH LAB USE ONLY) ONE (10:34)
[2023-07-06] MEDS: fentaNYL citrate PF 100 MCG/2 ML VIAL ONE (10:35)
[2023-07-06] MEDS: niCARdipine HCL INJ 2.5 MG/ML 10 ML AMP ONE (10:36)
[2023-07-06] MEDS: OPTIRAY 350 ONE (10:36)
[2023-07-06] MEDS: MIDAZOLAM HCL 1 MG/ML 2ML VIAL ONE ×2 (10:36→10:37)
[2023-07-06] MEDS: NITROGLYCERIN/D5W 100MCG/ML 20ML SYR ONE (10:37)
[2023-07-06] MEDS: TICAGRELOR 90 MG TAB ONE (10:37)
[2023-07-06] MEDS: hydrALAZINE HCL 20 MG/ML VIAL ONE (10:37)
--- NOTE | 2023-07-06 15:04 | Electrocardiogram Report ---
Test Reason : Blood Pressure : / mmHG Vent. Rate : 050 BPM Atrial Rate : 050 BPM P-R Int : 212 ms QRS Dur : 074 ms QT Int : 506 ms P-R-T Axes : 073 010 071 degrees QTc Int : 461 ms Sinus bradycardia with 1st degree A-V block Low voltage QRS Cannot rule out Anteroseptal infarct , age undetermined Abnormal ECG No previous ECGs available Confirmed by Mehran Hurtado ([id number]) on 07/06/2023 3:04:39 PM Referred By: Robert Moseley Confirmed By:Mehran Hurtado
[2023-07-06] MEDS: ATROPINE SULFATE 0.1 MG/ML 10ML SYR IV ONE (15:23)
--- NOTE | 2023-07-06 17:51 | Cardiac Catheterization ---
[facility] Data: Manager Forms Cardiac Status Clinical evaluation leading to the procedure CAD Presenation: Positive Stress Test Anginal Classification: CCS III Heart Failure: No Cardiogenic Shock within 24 Hours: No Cardiac Arrest within 24 Hours: No Imaging Studies Past 6 Months: Yes Stress Echocardiogram: Yes - Positive Diagnostic Physicians Name: Eugene Meza MD, PhD Closure Device Percutaneous Entry Location: Radial Closure Device: Radial Band Recommendations: Medical Therapy and/or Counseling and PCI without planned CABG PCI Indication: + Stress Test Lesion Segment Name: Mid diagonal Culprit Artery: Yes Stenosis Prior to Rx (%): 80% Chronic Total Occlusion: No Pre-Procedure ASHLY Flow: 3 Previously Treated Lesion: No Lesion Complexity: Non-High/Non-C Lesion Length (mm): 6 mm Thrombus Present: No Bifurcation Lesion: No Guidewire Across Lesion: Yes Cardiac Cath Procedure Full Procedure Date July 06, 2023 Pre-Procedure Diagnosis Pre-Procedure Diagnosis: Positive Stress Test AUC Score AUC Score: 7 Post-Procedure Diagnosis Post-Procedure Diagnosis: Severe CAD and Successful PCI Procedure(s) Performed Procedure(s) Performed: Drug Eluting Stent and Fractional Flow [employer] Educator Eugene Meza MD, PhD Human Geography Faculty Member(s) Tenzin ROTARY CUTTER Estimated Blood Loss Estimated Blood Loss: 10 cc Medication(s) Medication(s): Fentanyl, Heparin, Lidocaine 1%, Nicardipine, Nitroglycerin and Versed Summary of Findings Brief description: I was asked to evaluate the patient's LAD and diagonal disease. Patient had just completed a diagnostic cardiac cath performed by Dr. aJmie Rome. There was an indwelling 6 Croatian radial artery glide sheath. Patient had already received sedation and initial dose of heparin. Patient was provided additional sedation with IV Versed and fentanyl. ACT was checked intermittently throughout the case and additional heparin provided as needed to maintain therapeutic anticoagulation. A 5 Croatian EBU 3.0 guide c atheter was advanced over the J-wire and used to engage the left main coronary. Of note, patient had significant vasospasm with catheter advancement despite the use of intra-arterial nicardipine and nitroglycerin. Through the guide catheter, the Omni Doppler wave wire was advanced and positioned with the transducer just distal to the guide catheter tip. System was flushed with normal saline and then the pressures were normalized. With difficulty the Doppler wire was eventually passed beyond the lesion in the ostial LAD but could not be directed into the mid LAD. It was therefore advanced into the large diagonal branch such that the transducer was distal to the ostial LAD lesion. The IFR was sampled 3 times. The Doppler wire was then removed. Decision was made to attempt PCI of the severe lesion (80%) in the diagonal. This vessel was noted to have significant tortuosity with the proximal LAD also having a calcified and tortuous portion. A BMW reversal guidewire was advanced down the diagonal and positioned distally. Predilatation was performed using a 2.0 x 6 mm trek balloon up to 14 pasha. The balloon was removed and angiography was performed. We next attempted to pass a 2.25 x 8 mm renzo point drug-eluting stent but could not navigate the tortuosity and calcification in the proximal LAD. The stent was therefore removed. A second BMW universal guidewire was then adva nced to be used as a "mendez wire" to help with the tortuosity. We opted this time to advance a 2.0 x 8 mm Milo drug-eluting stent which was after great difficulty able to be delivered across the lesion in the diagonal. The mendez wire was removed and the stent was then deployed for a final diameter of 2.25 mm. Stent balloon was then removed. Piece Work Checker angiography was performed and there were findings concerning for proximal diagonal spasm and possible endothelial damage. We therefore reinserted the second guidewire and we were considering placing a second stent. We again had difficulty navigating the proximal LAD tortuosity and therefore removed the stent without deploying. The guidewires were pulled back and we decided to inject intracoronary nitroglycerin and nicardipine. This completely resolved and he vasospasm and there was no evidence of endothelial injury or dissection. The first BMW universal guidewire was removed. Final angiographic evaluation was performed. The guide catheter was then removed. Patient was given nicardipine and nitroglycerin via the radial artery sheath because of spasm. The sheath was then removed and hemostasis was obtained using the TR band. Patient was returned to the recovery area in stable condition. This ended the case. IFR analysis of ostial LAD: 0.94, 0.94, 0.94. Therefore, this is not considered hemodynamically significant. PCI findings: 80% diagonal stenosis is reduced to 0% stenosis post PCI. No evidence of dissection or perforation ASHLY-3 flow post PCI Summary: 1. Difficult but successful PCI with implantation of a small caliber drug- eluting stent to the diagonal. 2. IFR analysis of the ostial LAD demonstrates that this is not normal but not hemodynamically significant at this time. 3. Dual antiplatelet therapy with aspirin 81 mg daily and Brilinta 90 mg p.o. twice daily for up to 1 to 2 years. 4. Guideline directed medical therapy for secondary prevention of coronary artery disease as per primary recycling assistant. Hemodynamics Rest Ao:: 169/68 mmHg Final Ao: 130/62 mmHg LV: Not performed Recommendations Recommendations: Medical Therapy and/or Counseling and PCI without planned CABG Radiation Exposure (mGy) 2416 mGy, fluoroscopy time 29.5 minutes Contrast (mls) 200 mL Fluids (cc crystalloids) Fluids (cc crystalloids): 71 Nss Drains Drains: N/A Anesthesia 2 mg Versed, 50 mcg fentanyl. Start 921, End 102. Procedural Complication(s) None Disposition Manager Forms Holding/Recovery I attest to the content of the Intraoperative Record and any orders documented therein. Any exceptions are noted below. [facility] Card Cath Procedure Codes Cardiac Catheterization Procedure 1: Cardiovascular Cath Procedures: 33320 (Doppler) Pressure Wire (LAD) Moderate Sedation Procedure 1: Sedation/Anesthesia: 26059 Mod Sedation by a different physician ;Init15 Min Child Age 5&Up (Initial 15 min, start 921) Procedure 2: Sedation/Anesthesia: 77482 Mod Sedation by a different physician;Ea Additional 15 Minutes (Additional 52 min, End 1029) Stenting Procedure 1: Cardiovascular Stent Procedures: 75707 Perc transcatheter placement of intracoronary stent(s), with ang (Diagonal branch, LAD) PG Care Time/CCT Total # of Minutes Spent Total Time Spent with Patient: Total time spent is greater than 50% in coordination of care (as documented) at patient's floor/unit and/or counseling patient:
[2023-07-06] MEDS: TICAGRELOR 90 MG TAB PO SCH (20:04)
[2023-07-06] MEDS: ATORVASTATIN 40 MG TAB PO SCH (20:04)
[2023-07-06] MEDS: ACETAMINOPHEN 325 MG TAB PO PRN (20:36)
[2023-07-07 06:02] LABS: Basophils # (auto) 0.03 K/uL (0.00-0.20); Basophils % (auto) 0.3 %; Eosinophils # (auto) 0.07 K/uL (0.00-0.50); Eosinophils % (auto) 0.7 %; Hematocrit (blood only) 33.9 % (37.0-47.0); Hemoglobin 11.7 g/dl (12.0-16.0); Immature Granulocytes # (auto) 0.03 K/uL (0.01-0.20); Immature Granulocytes % (auto) 0.3 %; Mean Corpuscular Hemoglobin 30.2 pg (25.0-34.0); Mean Corpuscular Hgb Conc 34.5 g/dL (32.0-36.0); Mean Corpuscular Volume 87.6 fL (80.0-100.0); Mean Platelet Volume 9.8 fL (9.4-12.4); Monocytes # (auto) 0.93 K/uL (0.11-0.59); Monocytes % (auto) 9.8 %; Neutrophils # (auto) 6.62 K/uL (1.40-6.50); Neutrophils % (auto) 69.9 %; Platelet Count 230 K/uL (130-400); RDW Coefficient of Variation 12.9 % (11.5-14.5); RDW Standard Deviation 41.1 fL (36.4-46.3); Red Blood Count 3.87 M/uL (4.20-5.40); White Blood Count 9.48 K/ul (4.8-10.8)
[2023-07-07 06:20] LABS: BUN Creatinine Ratio 23.1 (10-20); Calcium 8.7 mg/dl (8.6-10.3); Creatinine Clr Calc Pharmacy 92.9 ml/min; Est GFR (African American) 116.2 ml/min; Est GFR (Non-African American) 100.3 ml/min; Potassium 3.2 mmol/L (3.5-5.1)
[2023-07-07] MEDS: ASPIRIN 81 MG ECTAB PO SCH (09:07)
[2023-07-07] MEDS: LOSARTAN POTASSIUM 25 MG TAB PO SCH (09:07)
[2023-07-07] MEDS: METOPROLOL SUCC 25MG EXT REL TAB PO SCH (09:08)
--- NOTE | 2023-07-07 10:10 | Cardiology Progress Note ---
Date of Service July 07, 2023 Assessment & Plan (1) Stenosis of diagonal coronary artery: (2) Abnormal stress echocardiogram: (3) Dyslipidemia, goal LDL below 70: Plan 63-year-old female presented for diagnostic cardiac catheterization due to abnormal exercise stress echo. Coronary intervention performed with drug- eluting stent implantation to diagonal branch vessel. No complications. Dual antiplatelet therapy recommended for one 1 year uninterrupted. Continue beta- jose therapy. Atorvastatin titrated to 80 mg daily. Add losartan 12.5 mg daily. Patient will be discharged to home today. Repeat basic metabolic panel and CBC in 1 week. Cardiology follow-up in 2 weeks. Admission and Anticipated Discharge Date Admission Date: July 06, 2023 Subjective Patient seen and examined at bedside. Reports headache last evening requiring Tylenol. No recurrence this morning. Feeling well from a cardiovascular perspective. Denies chest pain or heaviness. No shortness of breath. Telemetry reveals sinus rhythm. Review of Systems Review of Systems: All systems reviewed & are unremarkable except as noted in Subjective Physical Exam Constitutional: well nourished; no acute distress Respiratory: normal respiratory effort; no respiratory distress, no labored breathing and no retractions Auscultation: no crackles, no rales, no rhonchi and no wheezes Cardiovascular: RRR, no murmur, no edema Heart Sounds: normal S1 and normal S2 Vessels: no JVD and no carotid bruit Extremities: no edema Gastrointestinal (Abdomen): Inspection/Auscultation: abdomen normal to inspection and normal bowel sounds; abdomen not distended Neurologic: CN's II-XI intact bilaterally and moves all extremities; no focal motor deficits Results & Data Vital Signs (Past 12 Hours) Vital Signs Temp Pulse Pulse Resp BP Pulse Ox O2 Del Method 07/07/23 07:29 37.3 C 67 17 143/70 H 95 Room Air 07/07/23 05:05 65 157/77 H 07/07/23 03:34 62 07/07/23 02:52 36.6 C 58 L 20 168/90 H 97 Room Air 07/06/23 23:12 36.8 C 62 20 134/67 97 Room Air Laboratory Results CBC 07/07/23 Range/Units 05:37 WBC 9.48 (4.8-10.8) K/ul RBC 3.87 L (4.20-5.40) M/uL Hgb 11.7 L (12.0-16.0) g/dl Hct 33.9 L (37.0-47.0) % Plt Count 230 (130-400) K/uL Neut # (Auto) 6.62 H (1.40-6.50) K/uL Lymph # (Auto) 1.80 (1.20-3.40) K/uL [place] # (Auto) 0.93 H (0.11-0.59) K/uL Eos # (Auto) 0.07 (0.00-0.50) K/uL Baso # (Auto) 0.03 (0.00-0.20) K/uL Comprehensive Metabolic Panel 07/07/23 Range/Units 05:37 Sodium 134 L (136-145) mmol/L Potassium 3.2 L (3.5-5.1) mmol/L Chloride 104 (98-107) mmol/L Carbon Dioxide 23 (21-32) mmol/L BUN 12 (6-23) mg/dl Creatinine 0.52 L (0.6-1.2) mg/dl Glucose 101 H (70-99(Fasting)) mg/dl Calcium 8.7 (8.6-10.3) mg/dl Intake and Output 07/06/23 07/07/23 07/07/23 22:59 06:59 14:59 Intake Total 250 / 250 Balance 250 / 250 Intake: Oral 250 / 250 Other: Other Intake Source Sips # Unmeasured Voids 1
[2023-07-07] MEDS ORDERED: NITROGLYCERIN SL 0.4 MG/TAB TAB SL PRN (10:11)
--- NOTE | 2023-07-07 10:29 | Discharge Summary ---
Date of Service July 07, 2023 Admission HPI Per Admitting Provider 63-year-old female presented for cardiac catheterization after exercise stress echocardiogram. Stress testing demonstrating septal and apical ischemia. Patient reports mild exertional symptoms including dyspnea. Denies chest discomfort. Principal Diagnosis Coronary artery disease. Discharge Exam Constitutional well nourished; no acute distress ENMT Mallampati Class: III Respiratory normal respiratory effort; no respiratory distress, no labored breathing and no retractions Auscultation: no crackles, no rales, no rhonchi and no wheezes Cardiovascular RRR, no murmur, no edema Heart Sounds: normal S1 and normal S2 Vessels: no JVD and no carotid bruit Extremities: no edema Gastrointestinal (Abdomen) Inspection/Auscultation: abdomen normal to inspection and normal bowel sounds; abdomen not distended Neurologic CN's II-XI intact bilaterally and moves all extremities; no focal motor deficits Discharge Data Allergies Allergy/AdvReac Type Severity Reaction Status Date / Time No Known Allergies Allergy Verified 07/06/23 07:27 Consultations Interventional cardiology, Dr. Meza. Procedures Performed Operation Date: 07/06/23 08:00 Actual Procedures p Cineradiography w/Routine Exam - Jamie Rome DO s Cath, Left with Cors and Vent - Jamie Rome, DO s Drug Eluting Stent SGl Vessel - Eugene Meza MD, PhD s Fraction Flow [place] SGL Ves - Eugene Meza MD, PhD Ordered Studies 07/06/23 07:05 CL Cath Imgs for PACS use only Routine Hospital Course (1) Stenosis of diagonal coronary artery: (2) Abnormal stress echocardiogram: (3) Dyslipidemia, goal LDL below 70: Plan 63-year-old female presented for diagnostic cardiac catheterization due to ab normal exercise stress echo. Coronary intervention performed with drug-eluting stent implantation to diagonal branch vessel. No complications. Dual antiplatelet therapy recommended for one 1 year uninterrupted. Continue beta- jose therapy. Atorvastatin titrated to 80 mg daily. Add losartan 12.5 mg daily. Patient will be discharged to home today. Repeat basic metabolic panel and CBC in 1 week. Cardiology follow-up in 2 weeks. Total Time Total Time Spent Total Time Spent (In Minutes): 35 Discharge Plan Discharge Items Patient Disposition: Home - Self-Care Reason For Visit: CAD S/P PCI Discharge Diagnosis: Abnormal stress echo CAD s/p stent implantation Condition on Discharge: Good Activity: Per Instructions section Non-emergency contact: Shipping And Receiving Assistant Call non-emergency contact if: you have any medication questions, your symptoms worsen and your pain is not controlled Follow-up/Referrals: Anisha Suazo MD [Primary Care Provider] - Diet: Heart Healthy Addtl Attending Provider Instructions: ACTIVITY RECOMMENDATIONS: It is common to feel weak and fatigue for a few days. * Do not drive or operate any motorized equipment for the next three days. * Limit stair usage (2 or 3 trips a day only) for the next three days. * Do not lift anything heavier than 10 pounds for the next three days. * Do not engage in vigorous exercise or any sports for the next five days. * You may shower the day after your procedure, but do not immerse the area for three days. Cleanse the site gently with soap and water. SPECIAL CARE INSTRUCTIONS: * You may replace the pressure dressing or band-aid the morning after the procedure. * After your procedure, it is normal to have a small bruise or small lump at the site. Examine your site daily for any change in the bruise or lump, redness, swelling, drainage or numbness. Notify your doctor if any change. BLEEDING: * If there is a small amount of bleeding at the site, lie down and apply firm pressure with a clean cloth for ten minutes. When the bleeding stops, lie quietly keeping the procedure limb straight for six hours. Notify your doctor as soon as possible. * If the bleeding does not stop after ten minutes or if there is a large amount of bleeding or spurting, call 911 immediately. Continue to lie down and hold firm pressure until help arrives. SKIN IRRITATION: * You may experience some redness and/or swelling in the area where radiation was administered. If any skin irritation occurs, please contact your family physician. FOLLOW UP VISIT: Keep any scheduled doctor appointments. Cardiology follow-up in 2 weeks. Pending Studies at Discharge: Yes Studies:: blood test in one week Stand-Alone Forms: [employer], Smoking Cessation Medications and DC Order Prescriptions: New Brilinta 90 mg Tablet 90 mg PO BID Qty: 60 6RF atorvastatin 40 mg Tablet 80 mg PO HS Qty: 34 6RF losartan 25 mg Tablet 12.5 mg PO QAM Qty: 34 6RF nitroglycerin [Nitrostat] 0.4 mg Tablet, Sublingual 0.4 mg sublingual Q5M Qty: 1 2RF metoprolol succinate 25 mg Tablet Extended Release 24 Hr 25 mg PO QAM Qty: 34 6RF Continued valacyclovir 500 mg tablet 500 mg PO DAILY Qty: 90 3RF ketoconazole 2 % Shampoo 1 ea TOPICAL DAILY aspirin 81 mg Tablet,Delayed Release (Dr/Ec) 81 mg PO DAILY fluocinonide 0.05 % Solution 1 applic TOPICAL BID psyllium 3.4 gram/5.8 gram Powder See Rx Instructions .ROUTE .COMPLEX Rx Instructions: 1 TBSP every 3 days cholecalciferol (vitamin D3) 25 mcg (1,000 unit) Tablet 25 mcg PO DAILY Discontinued metoprolol tartrate 25 mg Tablet 12.5 mg PO BID Discharge Orders: Discharge Order (Routine); Ordered 07/07/23 Ordered By: Jamie Rome Admission Data Admit Date/Time: 07/06/23 11:04 Attending Provider: Jamie Rome Admit Provider: Jamie Rome Primary Care Provider: Anisha Suazo
--- OUTSIDE RECORDS SUMMARY | 2023-07-07 13:51 | External Medical Summary | Summary of Care ---
Author Name Unknown Organization [facility] Address [address] [place] [address] Phone [phone] Care Team Providers Care Industrial Rehabilitation Consultant Name Role Phone Anisha Suazo MD Primary Care Provider [phone] Encounter Details Date Type Department Care Team (Late st Contact Info) Description 07/06/2023 Result Scan Unspecified Department Jamie Rome, DO [address] [place] [address] <No scans attached> Allergies No known active allergiesdocumented as of this encounter (statuses as of 07/07/2023) Medications Medication Sig Dispensed Refills Start Date [...] as of this encounter (statuses as of 07/07/2023) Active Problems Problem Noted Date Diagnosed Date [...] as of this encounter (statuses as of 07/07/2023) Resolved Problems Problem Noted Date Diagnosed Date Resolved Date ADVANCE DIRECTIVE INFORMATION 11/25/2004 03/17/2022 Overview: informed to bring in to scan documented as of this encounter (statuses as of 07/07/2023) Immunizations Name Administration Dates Next Due COVID-19 [...] AM EST Office Visit General Internal Medicine [facility] [place] [address] [facility] [place] [address] Anisha Suazo MD [address] [facility] [place] [address] 08/21/2023 10:45 AM EDT Hospital Encounter [facility], Endoscopy Room [facility] [address] [place] [id number] Gabby Clifford DO 08/21/2023 10:45 AM EDT - 08/21/2023 11:15 AM EDT Surgery ENDO [facility], Endoscopy Room [facility] [address] [place] [phone] Gabby Clifford, COLONOSCOPY FLEXIBLE PROXIMAL DIAGNOSTIC Scheduled [...] Influenza Vaccine (FLU shot) (#1) 2023 02/11/2020 Pneumococcal Vaccine: 65+ Years (1 - PCV) 2023 Depression Screening 04/17/2024 04/17/2023 Mammogram 04/19/2024 04/19/2023, 12/29, 01/17/2022, Additional history exists Lipid Panel 03/09/2028 03/09/2023, 02/26, 03/21/2017, Additional history exists DTaP,Tdap,and Td Vaccines (3 - Td or Tdap) 05/16/2028 05/16/2018, 03/14/2008 DXA Scan 07/05/2033 07/05/2023 Cervical Cancer Screening Discontinued Pap Smear Discontinued [...] Not on filedocumented as of this encounter Procedures Procedure Name Priority Date/Time Associated Diagnosis Comments OUTSIDE LAB RESULTS 07/06/2023 documented in this encounter Results * OUTSIDE LAB RESULTS (07/06/2023) 07/06/2023 Jamie O Kopinski DO LABORATORY documented in this encounter Care Teams Industrial Rehabilitation Consultant Relationship Specialty Start Date End Date Anisha Suazo MD [address] [place] [address] PCP - General Internal Medicine 04/26/21 documented as of this encounter
== END 2023-07-07 12:04 | disposition home or self-care (01) ==
LOC: 2E 06:59 → CC 06:59